=== PATIENT | female | born 2000 | race Caucasian/White ===

== ENCOUNTER 2022-12-07 08:27 | Emergency (ER) | payer OTHER ==
[~2022-12-07] VITALS: Ht 154.9 cm; Wt 69.4 kg
[2022-12-07 09:08] VITALS: BP 122/76
== END 2022-12-07 11:42 | disposition home or self-care (01) ==
LOC: ER 08:27
DX: S06.0X0A Concussion without loss of consciousness, initial encounter (principal); M25.532 Pain in left wrist; V80.010A Animal-rider injured by fall from or being thrown from horse in noncollision accident, initial encounter
CPT/HCPCS: 29125; 70450; 73110; 99283-25